=== PATIENT | male | born 1960 | race Caucasian/White ===

== ENCOUNTER 2021-10-29 21:10 | Emergency (ER) | payer BC ==
[2021-10-29] MEDS ORDERED: methylPREDNISolone Sodium Succinate 125 MG/2 ML SDV IM ONE (21:23)
--- NOTE | 2021-10-29 21:30 | EDM.PDOC ---
ED HPI GENERAL MEDICAL PROBLEM - General Chief Complaint: Allergic Reaction Stated Complaint: ALLERGIC REACTION Time Seen by Provider: 10/29/21 21:23 Source of Information: Reports: Patient History Limitations: Reports: No Limitations - History of Present Illness INITIAL COMMENTS - FREE TEXT/NARRATIVE: Linh is a 61-year-old male presenting to the ED for evaluation of possible a llergic reaction. The patient is unsure of exactly what may have triggered the reaction but he thinks it may have been pineapple that he ate 20 minutes before the onset of symptoms. The only other thing he took before that was Advil for some neck pain. He has never had an allergic reaction before. Initially he felt his throat was a little thick and he had horrible reflux causing him to start to cough. His who is a manager pharmacy gave him Benadryl and Pepcid. He started develop hives on the face and chest. When he started to have audible wheezing she became concerned prompting his trip to the ER. He arrives to the ER with some improvement both in his urticaria and in his wheezing. He does not have any known allergens. He is not any fever, chills, vomiting or diarrhea. denies pain Pain Score (Numeric/FACES): 0 - Related Data Allergies Allergy/AdvReac Type Severity Reaction Status Date / Time No Known Allergies Allergy Verified 05/27/21 07:23 Home Meds: Home Meds Cetirizine [ZyrTEC] 10 mg PO BEDTIME 10/29/21 [History] Fluticasone Propion/Salmeterol [Advair 250-50 Diskus] 1 puff PO DAILY 10/29/21 [History] Montelukast [Singulair] 10 mg PO BEDTIME 10/29/21 [History] ED ROS ALLERGIC REACTION - Review of Systems Review Of Systems: See Below Constitutional: Reports: No Symptoms HEENT: Reports: Throat Swelling Respiratory: Reports: Shortness of Breath, Wheezing, Cough Cardiovascular: Reports: No Symptoms Endocrine: Reports: No Symptoms GI/Abdominal: Reports: Abdominal Pain (Horrible reflux symptoms), Nausea : Reports: No Symptoms Musculoskeletal: Reports: No Symptoms Skin: Reports: Urticaria (Face and chest) Neurological: Reports: No Symptoms Psychiatric: Reports: No Symptoms Hematologic/Lymphatic: Reports: No Symptoms Immunologic: Reports: Food Allergy (Possibly to pineapple) ED EXAM GENERAL NO PERIP PULSE - Physical Exam Exam: See Below Exam Limited By: No Limitations General Appearance: Alert, Anxious Eye Exam: Bilateral Eye: EOMI, PERRL Nose: Normal Inspection Throat/Mouth: Normal Inspection, Normal Oropharynx, Normal Voice, No Airway Compromise Head: Atraumatic, Normocephalic, Other (Flushed face) Neck: Normal Inspection, Supple Respiratory/Chest: No Respiratory Distress, Lungs Clear, Normal Breath Sounds, No Accessory Muscle Use. No: Crackles, Rales, Rhonchi, Wheezing Cardiovascular: Normal Peripheral Pulses, Regular Rate, Rhythm, No Murmur GI/Abdominal: Normal Bowel Sounds, Non-Tender Neurological: Alert, Oriented, Normal Cognition, No Motor/Sensory Deficits Psychiatric: Anxious Skin Exam: Rash (Urticaria has resolved but there is still some erythema in the distribution where the bacteria was previously.) Course - Vital Signs Last Recorded V/S: Last Vital Signs Temp 36.7 C 10/29/21 21:21 Pulse 78 10/29/21 21:21 Resp 18 10/29/21 21:21 BP 142/85 H 10/29/21 21:21 Pulse Ox 92 L 10/29/21 21:21 - Orders/Labs/Meds Meds: Medications Discontinued Medications Generic Name Dose Route Start Last Admin Trade Name Freq PRN Reason Stop Dose Admin Methylprednisolone Sodium Succinate 125 mg 10/29/21 21:23 10/29/21 21:41 Methylprednisolone Sodium Succinate 125 Mg/2 Ml Sdv IM 10/29/21 21:24 125 m g ONETIME ONE Administration - Re-Assessments/Exams Free Text/Narrative Re-Assessment/Exam: 10/29/21 22:25 CVID diphenhydramine and famotidine prior to arriving here and was starting to feel somewhat better. We finished off the triad with Solu- Medrol 125 mg IM. The patient was watched for about a half an hour and continued to improve. At this time I believe he suitable for discharge home in satisfactory condition. I did alert him that he will probably have some diarrhea if this was truly due to the pineapple. Indications return to the ED were discussed and he was discharged in satisfactory condition. Departure - Departure Time of Disposition: 22:26 Disposition: Home, Self-Care 01 Clinical Impression: Allergic reaction Qualifiers: Encounter type: initial encounter Qualified Code(s): T78.40XA - Allergy, unspecified, initial encounter - Discharge Information Instructions: Allergies, Adult, [id number] Referrals: PCP,None [Primary Care Provider] - Forms: ED Department Discharge Care Plan Goals: It is possible that your reaction is due to the pineapple, however, its uncertain and difficult to tell if that is the offender. I would probably avoid it in the future. The Solu-Medrol should continue to work over the next 24 hours. If you start to get upset stomach again retake the Pepcid. Have a Merry [place] and a safe New Year. Sepsis Event Note (ED) - Evaluation Sepsis Screening Result: No Definite Risk - Focused Exam Vital Signs: Vital Signs Temp Pulse Resp BP Pulse Ox 10/29/21 21:21 36.7 C 78 18 142/85 H 92 L 10/29/21 21:19 36.7 C 78 18 142/85 H 92 L - Problem List & Annotations (1) Allergic reaction SNOMED Code(s): 181237807 Code(s): T78.40XA - ALLERGY, UNSPECIFIED, INITIAL ENCOUNTER Status: Acute Priority: Medium Current Visit: Yes Qualifiers: Encounter type: initial encounter Qualified Code(s): T78.40XA - Allergy, unspecified, initial encounter - Problem List Review Problem List Initiated/Reviewed/Updated: Yes
== END 2021-10-29 22:36 | disposition home or self-care (01) ==
LOC: JP.ED 21:10
DX: T78.40XA Allergy, unspecified, initial encounter (principal)
CPT/HCPCS: 96372; 99283; J2930

== ENCOUNTER 2022-04-06 07:38 | Day surgery (SDC) | payer BC ==
[~2022-04-06 07:38] MED LIST: Dextrose 5%-Lactated Ringers 1,000 ML IV SCH; Midazolam 1 MG/ML 2 ML SDV ONE; Propofol 200 MG/20 ML SDV ONE; fentaNYL 100 MCG/2 ML SDV ONE
== END 2022-04-06 10:19 | disposition home or self-care (01) ==
LOC: JP.SDS 07:38
PROVIDERS: ATTEND Surgery
DX: Z12.11 Encounter for screening for malignant neoplasm of colon (principal); K57.30 Diverticulosis of large intestine without perforation or abscess without bleeding; J45.909 Unspecified asthma, uncomplicated
CPT/HCPCS: 45378; J2250; J2704; J3010